=== PATIENT | female | born 1975 | race Caucasian/White ===

== ENCOUNTER → 2024-10-21 16:06 | Outpatient (REF) | payer OTHER, SELFPAY | LOC: HWRAD 16:06 | PROVIDERS: ATTENDING PHYSICIAN Family Medicine | DX: R06.00 Dyspnea, unspecified (principal) | CPT/HCPCS: 71046 ==

== ENCOUNTER 2025-01-20 16:22 | Emergency (ER) | payer OTHER, SELFPAY ==
[2025-01-20 16:24] VITALS: BP 142/90
[2025-01-20 16:58] LABS: % Eosinophils 1.2 % (0-6); % Immature Granulocytes 0.3 % (0-0.5); % Lymphocytes 25.6 % (20.5-51.1); % Monocytes 8.1 % (1.7-9.3); % Neutrophils 63.8 % (42.2-75.2); Absolute Basophils 0.1 10^3/uL (0-0.2); Absolute Eosinophils 0.1 10^3/uL (0-0.7); Absolute Lymphocytes 1.7 10^3/uL (1.2-3.4); Absolute Monocytes 0.6 10^3/uL (0.1-0.6); Absolute Neutrophils 4.3 10^3/uL (1.4-6.5); Hematocrit 41.7 % (37.0-47.0); Hemoglobin 14.3 g/dL (12.0-16.0); Mean Corp Hgb Conc. 34.3 g/dL (33.0-37.0); Mean Corpuscular Hgb 30.3 pg (27.0-31.0); Mean Corpuscular Volume 88.3 fL (81.0-99.0); Mean Platelet Volume 10.4 fL (7.4-10.4); Nucleated Red Blood Cells % 0 %; Platelet Count 252 10^3/uL (130-400); Red Blood Cell Count 4.72 10^6/uL (4.20-5.40); Red Cell Dist. Width 12.5 % (11.5-14.5); White Blood Cell Count 6.8 10^3/uL (4.8-10.8)
[2025-01-20 17:13] LABS: ALT (SGPT) 30 U/L (0-35); AST (SGOT) 27 U/L (14-36); Alkaline Phosphatase 61 U/L (38-126); Blood Urea Nitrogen 15 mg/dl (7-17); Calcium 9.8 mg/dl (8.4-10.2); Carbon Dioxide 27 mmol/L (22-30); Chloride 101 mmol/L (98-107); Glucose 105 mg/dl (70-99); Potassium 4.5 mmol/L (3.5-5.1); Sodium 137 mmol/L (135-145); Total Bilirubin 0.7 mg/dl (0.2-1.3); Total Protein 7.6 g/dl (6.3-8.2); eGFR > 60.00
[2025-01-20 17:24] LABS: Troponin I < 0.012 ng/ml
[2025-01-20 17:37] LABS: HCG, Serum Qualitative Screen Negative
[2025-01-20 18:04] VITALS: BP 135/85
[2025-01-20 18:10] VITALS: BMI 26.3
--- NOTE | 2025-01-20 19:18 | ED.GENMED ---
History of Present Illness
General
Chief Complaint: Dizziness
Time Seen by Provider: 01/20/25 19:18
History of Present Illness
History of Present Illness:
TIME OF INITIAL ENCOUNTER: 7:30 PM
HPI: Patient presents with abrupt onset vertiginous symptoms. 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 This is associated with a headache. Around that time, she noted that her blood pressure was 180 systolic and had a heart rate over 100.
This is associated with upper and lower extremity paresthesias distally. The paresthesias are improving however she does have some persistent paresthesias to the lower extremities. Her wonder if there could have been an anxiety component.
The patient states that she feels well-hydrated and drinks plenty of fluids.
EXAM:
GENERAL: Well appearing in no distress
HEENT: Moist oral mucosa, borderline positive Huron-Hallpike maneuver
CARDIOVASCULAR: No murmurs, normal heart rate, regular rhythm, No chest wall tenderness
PULMONARY: No respiratory distress, breath sounds are clear and equal
ABDOMEN: Soft with no peritoneal signs, no tenderness
NEUROLOGIC: Excellent strength all extremities, no coordination deficits, normal [id number] bilaterally
PSYCHIATRIC: Appropriate mental status, normal insight and judgement
EXTREMITIES: Nontender, no edema, moves all extremities equally
SKIN: No rash, no lesions
NUMBER AND COMPLEXITY OF PROBLEMS ADDRESSED AT THE ENCOUNTER
� Chronic conditions affecting care: No significant past medical history
� Acute Exacerbation and/or Progression of Chronic Illness: This is an acute problem
� Differential Diagnosis includes: BPPV, dysrhythmia unlikely, anxiety attack, hypertensive urgency unlikely, intracranial pathology very unlikely
AMOUNT AND/OR COMPLEXITY OF DATA TO BE REVIEWED AND ANALYZED
� I performed an independent evaluation of and my interpretation is:
EKG: Sinus 81, no acute ST abnormality, no old compare
CT:
X-rays:
Laboratory Studies: White count hemoglobin normal, chemistries unremarkable, hCG negative
Other:
� Review of other/old records: The patient was seen here in 2019 diagnosed with a concussion
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
� Prescriptions/Medications Considered but not given:
� Further testing considered but not performed:
RISK OF COMPLICATIONS AND/OR MORBIDITY OR MORTALITY OF PATIENT MANAGEMENT
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
� Discussion with other providers: Discussed the abnormal CT finding with Dr. Gleasonect may be alcohol use (patient admits to 1 glass of wine per day 5 days/week)
� Escalation of care including admission/observation vs risk of discharge considered: The patient has a nonfocal neurologic examination however does have associated headache. Only borderline positive Huron-Hallpike maneuver. Will
obtain CT imaging of the brain as she has ongoing symptoms limiting her ability to walk due to the dizziness.
ANY OTHER UPDATES:
10 PM: I reassessed patient. The patient states she was able to walk to the bathroom with some assistance with her . She remains to have a nonfocal neurologic examination. Suspect more of a inner ear issue. CT head shows moderate
cerebellar volume loss�I discussed with Dr. Balderas. Overall improved with meclizine and Zofran.
Past History
Past History
ED Past Medical History: None and Other (MVP)
ED Past Surgical History: Cholecystectomy, Tonsilectomy and Other (sinus surgery.)
Social History
Tobacco: Non-smoker
Alcohol: Occasional
Drug: None
Personal:
Living: with family
Phy Exam
Physical Exam
Physical Exam:
See HPI
Course
Orders/Labs/Results
Orders:
Orders
01/20/25 16:27
Electrocardiogram (*1) Urgent
Reason for Study: Chest Pain
EKG- Treatment ONCE
Test Result ONCE
01/20/25 16:37
Complete Blood Count/With Diff Urgent
Comprehensive Metabolic Panel Urgent
HCG, Serum Qualitative Screen Urgent
Comment: Notify provider if positive test present
Troponin I Urgent
01/20/25 19:30
CT Head W/o Iv Contrast Urgent
Comment:
Reason For Exam: severe dizzy HEALY
Meclizine [Antivert] 25 mg PO NOW STA
Ondansetron Orally Disint [Zofran Odt (Orally Disintegrating)] 4 mg PO NOW STA
Abnormal Lab Results
01/20/25
16:37
Glucose 105 H mg/dl
(70-99)
01/20/25 16:37
01/20/25 16:37
Vital Signs
Initial and Last Documented VS:
Initial Vital Signs
Temp Pulse Resp BP Pulse Ox
36.8 C 91 16 142/90 100
01/20/25 16:24 01/20/25 16:24 01/20/25 16:24 01/20/25 16:24 01/20/25 16:24
Last Documented Vital Signs
Temp Pulse Resp BP Pulse Ox
36.8 C 75 16 135/85 98
01/20/25 16:24 01/20/25 18:04 01/20/25 18:04 01/20/25 18:04 01/20/25 18:04
*Critical Care Note
Total Time (30-74mins, 75-104mins- exclusive of procedures): Not Applicable
ED Attending Note
-
Portions of this chart may have been created with voice recognition software.� Occasional wrong word or��sound alike� substitutions may have occurred due to the inherent limitations of voice recognition software.
Discharge Plan
Departure
Patient Disposition: Home (Routine Discharge)
Date of Disposition: 01/20/25
Time of Disposition: 22:24
Patient with high blood pressure during this ER visit?: Yes
Discharge Problem:
Vertigo
Instructions: Vertigo (a Type of Dizziness) (DC)
Prescriptions:
New
meclizine 25 mg tablet
25 mg PO BID PRN (Reason: dizziness) Qty: 20 0RF
ondansetron 4 mg tablet,disintegrating
4 mg PO TID PRN (Reason: nausea and vomiting) Qty: 14 0RF
Referrals:
Jolene Washington MD [Non-Admitting Privileges] - Follow up in 2-3 days
Julio Cesar Smith MD [Active] - Follow up in 2-3 days
Sylvester Robledo, [Family Provider] -
Joyce Cline MD [Active] - Follow up in 2-3 days
Activity Restrictions/Additional Instructions:
The cause of your symptoms could be related to an inner ear problem such as benign paroxysmal positional vertigo. I did notify the neurologist on-call, Dr. Balderas because the CAT scan did show moderate cerebellar volume loss. This is likely chronic.
There are neurologist thought maybe this could be related to alcohol use. I have given you the contact information for local neurologists (Dr. Washington and Dr. Smith) as well as a neurosurgeon (Dr. Cline), however the CT does not show any acute
finding.
Interventions
Interventions:
*Risk Screen - Suicide Last Done: 01/20/25 16:24
*General Assessment Last Done: 01/20/25 17:55
*Neglect/Abuse Screening Last Done: 01/20/25 16:24
*ED COVID-19 Vaccine History Last Done: 01/20/25 17:55
*Nursing Disposition Last Done: 01/20/25 22:20
ED- Neurological Assessment Last Done: 01/20/25 17:55
Discharge Date and Time
Print Language: MALAYSIAN
[2025-01-20] MEDS: ZOFRAN ODT (ORALLY DISINTEGRATING) 4 MG PO (19:37)
[2025-01-20] MEDS: ANTIVERT 25 MG PO (19:37)
== END 2025-01-20 22:40 | disposition home or self-care (01) ==
LOC: EMR 16:22
PROVIDERS: Emergency Medicine; EMERGENCY PHYSICIAN Emergency Medicine; FAMILY PHYSICIAN Family Medicine
DX: R42 Dizziness and giddiness (principal); R51.9 Headache, unspecified; Z90.49 Acquired absence of other specified parts of digestive tract
CPT/HCPCS: 99284; 70450; 80053; 84484; 84703; 85025; 93005

== ENCOUNTER → 2025-02-03 14:41 | Outpatient (REF) | payer OTHER, SELFPAY | LOC: PAVMRI 14:41 | PROVIDERS: ATTENDING PHYSICIAN Psychiatry & Neurology Neurology; FAMILY PHYSICIAN Family Medicine | DX: R20.0 Anesthesia of skin (principal); R93.0 Abnormal findings on diagnostic imaging of skull and head, not elsewhere classified; R41.3 Other amnesia; R42 Dizziness and giddiness | CPT/HCPCS: 70551 ==